=== PATIENT | male | born 1955 | race Two or more races ===

== ENCOUNTER 2017-09-20 12:52 | Emergency (ER) | payer BC, OTHER ==
[~2017-09-20] VITALS: Ht 172.7 cm; Wt 79.4 kg
[2017-09-20 13:02] VITALS: BP 179/110
[2017-09-20] MEDS ORDERED: KETOROLAC TROMETH 60MG/2ML VIAL IM ONE (20:00)
[2017-09-20] MEDS ORDERED: methylPREDNISolone SOD SUCC 125 MG/2 ML VL IM ONE (20:00)
== END 2017-09-20 20:18 | disposition home or self-care (01) ==
LOC: ER 12:52
DX: S33.5XXA Sprain of ligaments of lumbar spine, initial encounter (principal); M79.1 Myalgia; X58.XXXA Exposure to other specified factors, initial encounter; Y93.89 Activity, other specified; Y99.8 Other external cause status; Y92.89 Other specified places as the place of occurrence of the external cause
CPT/HCPCS: 96372; 99284; J1885; J2930